=== PATIENT | female | born 1935 | race African-American/Black ===

== ENCOUNTER 2016-05-03 10:02 | Emergency (ER) | payer OTHER ==
[~2016-05-03] VITALS: Ht 162.6 cm; Wt 68.0 kg
[2016-05-03 10:31] VITALS: Ht 162.6 cm; Wt 68.0 kg
--- NOTE | 2016-05-03 10:34 | RADRPT ---
PROCEDURE: XR Right Hand CLINICAL INDICATION: Thumb pain TECHNIQUE: AP, oblique, and lateral radiographs were submitted. COMPARISON: None FINDINGS: Osseous structures: The osseous elements appear mildly osteoporotic but intact. Joint spaces: There is extensive degenerative change about the distal interphalangeal joint of the r ight index finger and moderate degenerative changes are seen about the remaining distal interphalang eal joints with mild degenerative changes seen about the proximal interphalangeal joints and the int erphalangeal joint of the right thumb. Moderate osteoarthritic changes seen at the first metatarsal tarsal joint. Soft tissues: appear unremarkable. IMPRESSION: 1. Mild osteoporosis with no fracture identified. 2. Osteoarthritic changes as described most extensive at the distal interphalangeal joint of the ri ght index finger followed by the first metacarpal carpal joint space. Physician Ashley Date Time Electronically viewed and signed by Physician Ashley on 05/03/2016 10:34 /
[2016-05-03] MEDS ORDERED: SIMV10TA76 PO (11:20)
[2016-05-03] MEDS ORDERED: CHOL100062 PO (11:21)
[2016-05-03] MEDS ORDERED: CITA10TA84 PO (11:21)
[2016-05-03] MEDS ORDERED: OLAN2.5T4 PO (11:21)
[2016-05-03] MEDS ORDERED: LEVO25TA53 PO (11:21)
[2016-05-03] MEDS ORDERED: CALC500T91 PO (11:22)
[2016-05-03] MEDS ORDERED: DIVA250T4 PO (11:22)
[2016-05-03] MEDS ORDERED: TRAZ50TA18 PO (11:22)
[2016-05-03] MEDS ORDERED: DOCU-159 PO (11:23)
[2016-05-03] MEDS ORDERED: BISA5TAB6 PO (11:23)
[2016-05-03] MEDS ORDERED: FAMO40TA52 PO (11:23)
--- NOTE | 2016-05-03 11:32 | RADRPT ---
PROCEDURE: US right upper extremity veins. CLINICAL INDICATION: Right arm pain and swelling. TECHNIQUE: Multiple longitudinal and transverse images of the right upper extremity venous tree wa s obtained with olvera scale, pulsed Doppler, and color Doppler imaging. COMPARISON: None available FINDINGS: The right internal jugular, subclavian, axillary, brachial, basilic, cephalic, radial, and ulnar vei ns are patent. There is normal flow with augmentation and compressibility throughout. There is no t hrombus or occlusion. IMPRESSION: 1. Normal venous system of the right upper extremity. No evidence of thrombus or occlusion. RPTAT: QQ .Joon Kenyon MD, MD Date Time Electronically viewed and signed by .Joon Kenyon MD, MD on 05/03/2016 11:32 .R/
[2016-05-03] MEDS ORDERED: TYL500 PO (14:48)
--- NOTE | 2016-05-03 15:05 | ERD ---
ER Documentation Chief Complaint Date/Time DATE: 05/03/16 TIME: 15:00 Chief Complaint Pt BIB RA from SNF with R hand edema X 10 days. HPI 80-year-old female is sent from her alf facility for right ham edema plan 10 days. No abnormal signs or fevers are reported. Patient herself is minimally verbal and suffers from dementia. He has a history of severe arthritis. ROS Unobtainable Medications Home Meds Active Scripts Acetaminophen* (Tylenol*) 500 Mg Tab, 500 MG PO Q4H Y for MILD PAIN LEVEL 1-3, # 14 TAB Prov:AMY BARNETT DO 05/03/16 Reported Medications Bisacodyl* (Bisacodyl*) 5 Mg Tablet.dr, 5 MG PO Q48H Y for CONSTIPATION, TAB 05/03/16 Docusate Sodium* (Docusate Sodium*) 100 Mg Capsule, 100 MG PO BID, #60 CAP 05/03/16 Famotidine* (Famotidine*) 40 Mg Tablet, 40 MG PO BID, #60 TAB 05/03/16 Calcium Carbonate ([id number]) 500 Mg Tablet, 500 MG PO BID, TAB 05/03/16 Divalproex Sodium* (Divalproex Sodium*) 250 Mg Tablet.dr, 250 MG PO BID, #120 TAB 05/03/16 Trazodone Hcl* (Trazodone Hcl*) 50 Mg Tablet, 25 MG PO QHS, #30 TAB 05/03/16 Citalopram Hydrobromide* (Citalopram Hydrobromide*) 10 Mg Tablet, 10 MG PO DAILY , #30 TAB 05/03/16 Levothyroxine Sodium* (Levothyroxine Sodium*) 25 Mcg Tablet, 25 MCG PO BEFORE BREAKFAST, #30 TAB 05/03/16 Olanzapine* (Zyprexa*) 2.5 Mg Tablet, 2.5 MG PO DAILY, #30 TAB 05/03/16 Cholecalciferol* (Vitamin D3*) 1,000 Unit Tablet, 2000 UNIT PO DAILY, TAB 05/03/16 Simvastatin* (Zocor*) 10 Mg Tablet, 10 MG PO QHS, #30 TAB 05/03/16 Allergies Allergies: Coded Allergies: etodolac (Verified Allergy, Severe, 05/03/16) lisinopril (Verified Allergy, Severe, 05/03/16) PMhx/Soc History of Surgery: No Anesthesia Reaction: No (Unknown) Hx Neurological Disorder: Yes (Dimentia.) Hx Respiratory Disorders: No Hx Cardiac Disorders: No Hx Psychiatric Problems: No Hx Miscellaneous Medical Probl: No Hx Alcohol Use: No Hx Substance Use: No Hx Tobacco Use: No Smoking Status: Never smoker Physical Exam Vitals Vital Signs Date Time Temp Pulse Resp B/P Pulse Ox O2 Delivery O2 Flow Rate FiO2 05/03/16 13:13 98.3 64 20 152/87 100 05/03/16 10:31 98.3 78 20 141/92 100 Physical Exam Const: [] No distress Head: Atraumatic Eyes: Normal Conjunctiva ENT: Normal External Ears, Nose and Mouth. Neck: Full range of motion..~ No meningismus. Resp: Clear to auscultation bilaterally Cardio: Regular rate and rhythm, no murmurs Abd: Soft, non tender, non distended. Normal bowel sounds Skin: Stage I decubitus ulcer on bilateral hipbones near the trochanteric area. Minimal erythema, vitiligo-appearing discoloration of the skin bilaterally. Back: No midline or flank tenderness Ext: Mild right hand edema that is nonpitting, begins at the wrist and only includes the hand, there is no erythema or calor of the hand, no apparent tenderness to palpation in any of the wrist or hand bones. Capillary refill is intact and less than 1 second as well as radial pulses. Neur: Awake and alert, moves all 4 extremities Procedures/MDM Unilateral hand swelling with no signs of infection. Ultrasound for DVT of the upper extremity is negative as is examination of the bones under x-ray. It is unknown why the patient has unilateral peripheral edema at this time but after 10 days with no calor erythema does not appear infectious there are also no puncture wounds. I spoke with the [facility] doctor regarding this patient and informed him of the results of the workup. Cardio the nurse were also spoke to address bilateral skin lesions around her hips that facility perhaps one of the cream prescribed for. Is her decubitus ulcers S stage I with very little skin erosion whatsoever. They're in the dependent areas her body and she likes to lay in the side. She seems a preference for her left side with a ulcer is the largest. He he thinks us for her care. Patient is being transferred back to her alf facility with primary care follow-up instructions. Right hand x-ray interpretation: Arthritis with no acute fracture dislocation Ultrasound right upper extremity interpretation: No DVT Departure Diagnosis: Primary Impression: Decubitus ulcer of left hip, stage 1 Additional Impression: Swelling of right hand Condition: Stable Patient Instructions: Decubitus Ulcer, Peripheral Edema, Unilateral Additional Instructions: Call your primary care doctor TOMORROW for an appointment during the next 1-2 days.See the doctor sooner or return here if your condition worsens before your appointment time. AMY BARNETT DO May 03, 2016 15:05
[2016-05-03 20:23] VITALS: BP 176/83; PULSE 70; RESP 18; TEMP 98.9
== END 2016-05-03 20:25 | disposition home or self-care (01) ==
LOC: E/R 10:02
DX: L89.221 Pressure ulcer of left hip, stage 1 (principal); M79.89 Other specified soft tissue disorders; R40.2140 Coma scale, eyes open, spontaneous, unspecified time; R40.2350 Coma scale, best motor response, localizes pain, unspecified time; R40.2240 Coma scale, best verbal response, confused conversation, unspecified time; R40.2410 Glasgow coma scale score 13-15, unspecified time
CPT/HCPCS: 93971